=== PATIENT | female | born 2000 | race Caucasian/White ===

== ENCOUNTER 2025-08-27 11:12 | Emergency (ER) | payer OTHER ==
[~2025-08-27] VITALS: Ht 167.6 cm; Wt 61.2 kg
[2025-08-27] MEDS ORDERED: GABA300 (12:21)
[2025-08-27] MEDS ORDERED: GABA100 PO (12:21)
[2025-08-27] MEDS ORDERED: ALBU90OI INH (12:22)
== END 2025-08-27 15:57 | disposition home or self-care (01) ==
LOC: ER 11:12
DX: R06.02 Shortness of breath (principal); M41.9 Scoliosis, unspecified; Z91.013 Allergy to seafood; Z79.899 Other long term (current) drug therapy; Z59.89 Other problems related to housing and economic circumstances
CPT/HCPCS: 71046; 93005; 93010; 99285-25